=== PATIENT | male | born 1940 | race Caucasian/White ===

== ENCOUNTER → 2016-05-11 | Day surgery (SDC) | payer MEDICARE, OTHER ==
[~2016-05-11] VITALS: Ht 181.6 cm; Wt 121.6 kg
[~2016-05-11] MED LIST: COUMADIN ** IA5 MG PO; LEVOTHROID(SY175 MCG PO; TYLENOL EXTRA500 MG PO; TYLENOL WITH C1 EACH PO
--- NOTE | ~2016-05-11 | OR ---
PATIENT'S NAME: PRESTON CO[facility]EN [facility] AGE: 75 Y [address] ROOM: [place] [id number] [place] [facility] [place]: 05/11/[place] OR/Procedure Report DISCHARGE DATE: FAMILY PHYSICIAN: Paige Castellanos PA-C ATTENDING PHYSICIAN: Jermaine Love V SURGEON: Jermaine Love MD CONGRESSIONAL AIDE: DATE OF PROCEDURE: 05/11/2016 PREOPERATIVE DIAGNOSIS: Lesion in the anterior one-third of the right true vocal cord. POSTOPERATIVE DIAGNOSES: 1. Lesion in the anterior one-third of the right true vocal cord. 2. Esophageal lesion, 20 cm, right anterior lateral esophagus. OPERATION/PROCEDURE: 1. Direct laryngoscopy with biopsy. 2. Rigid esophagoscopy with biopsy. ANESTHESIA: General endotracheal anesthesia. ESTIMATED BLOOD LOSS: Minimal. COMPLICATIONS: None. DESCRIPTION OF PROCEDURE: The patient was taken to the operating room, laid in supine position with general endotracheal anesthesia. The head was rotated to 90 degrees. A right shoulder roll was placed. The head was placed in a sniffing position. A laryngoscope was inserted in the oral cavity and advanced. It was advanced down the right lateral pharyngeal wall. Tongue was elevated anteriorly. The epiglottis was visualized, noted be within normal limits. The laryngoscope was placed underneath the epiglottis, lifted anteriorly. The patient was noted to have polypoid hypervascular lesion occupying the anterior one-third of the right true vocal cord. Biopsy was obtained. The patient had some brisk bleeding. This was controlled topically with 1:10,000 epinephrine solution. The specimen was removed and sent for pathology. The laryngoscope was removed. Rigid esophagoscope was placed within the oral cavity, directed down the right lateral pharyngeal wall. It was then inserted into the right piriform and advanced through the cricopharyngeus and advanced down to 25 cm. It was slowly withdrawn at 20 cm. There appeared to be a probable flap pedunculated mucosal lesion. Biopsy was obtained. This was sent for pathology. Hemostasis was adequate. The esophagoscope was withdrawn. The pledgets were removed from the cords again visualizing the vocal cords. The cords were sprayed with lidocaine solution. PATIENT'S NAME: PRESTON COHEN [facility] AGE: 75 Y [address] ROOM: [place] [address] [place] [facility] [place]: 05/11/2016 OR/Procedure Report DISCHARGE DATE: FAMILY PHYSICIAN: Paige Castellanos PA-C ATTENDING PHYSICIAN: Jermaine Love V Hemostasis was adequate. The patient tolerated the procedure well, was aroused, extubated, and discharged from the operating room to the recovery room in satisfactory condition. MD VIN REYES/boydl /[id number] d: 05/11/16 2154 t: 05/18/16 0734, OPERATIVE SUMMARY
[2016-05-11 09:50] LABS: INR - (THERAPEUTIC) 1.1 (0.9-1.1); PROTIME 11.8 SECONDS (9.6-11.1)
== END | disposition disaster alternative care site (69) ==
LOC: GPOC 05-04 11:00 → GSDC 09:05 → GPOC 11:00
PROVIDERS: Otolaryngology
PROC: 0CBT8ZX Excision of Right Vocal Cord, Via Natural or Artificial Opening Endoscopic, Diagnostic (ICD-10-PCS; principal; 2016-05-11)
PROC: 0DB58ZX Excision of Esophagus, Via Natural or Artificial Opening Endoscopic, Diagnostic (ICD-10-PCS; 2016-05-11)
DX: J38.3 Other diseases of vocal cords (principal); E03.9 Hypothyroidism, unspecified; Z90.49 Acquired absence of other specified parts of digestive tract; Z86.718 Personal history of other venous thrombosis and embolism; Z98.890 Other specified postprocedural states
CPT/HCPCS: J0171; J2001; J7030

== ENCOUNTER → 2016-10-06 | Outpatient (CLI) | payer MEDICARE, OTHER | END | disposition disaster alternative care site (69) | LOC: GOPD 10-05 → GPOC 10-13 → GRAD 10-14 05:30 → GOPP 10-14 05:30 → GRAD 10-14 11:00 | PROC: 0BBJ3ZX Excision of Left Lower Lung Lobe, Percutaneous Approach, Diagnostic (ICD-10-PCS; principal; 2016-10-06) | DX: C34.32 Malignant neoplasm of lower lobe, left bronchus or lung (principal) | CPT/HCPCS: J2001; J3010 ==